=== PATIENT | female | born 1975 | race Caucasian/White ===

== ENCOUNTER 2017-10-10 22:46 | Emergency (ER) | payer MEDICARE, MEDICAID ==
[2017-10-10 23:33] VITALS: O2SAT 98
[2017-10-11] MEDS ORDERED: Sodium Chloride 0.9% 1000 ML 1,000 ML IV STA ×2 (00:05→03:37)
[2017-10-11] MEDS ORDERED: Zofran 4 MG/2 ML VIAL IV ONE ×2 (00:05→03:37)
[2017-10-11] MEDS ORDERED: PROTONIX 40 MG IV IV ONE ×2 (00:05→00:11)
[2017-10-11] MEDS ORDERED: SUBLIMAZE 100 MCG/2 ML IV ONE ×2 (00:05→02:31)
[2017-10-11] MEDS ORDERED: Sodium Chloride 0.9% 1000 ML 1,000 ML ONE (00:11)
[2017-10-11] MEDS ORDERED: Zofran 4 MG/2 ML VIAL ONE (00:11)
[2017-10-11] MEDS ORDERED: SUBLIMAZE 100 MCG/2 ML ONE ×2 (00:11→02:22)
--- NOTE | 2017-10-11 00:30 | ERPHSYRPT ---
- History of Present Illness Time Seen by Provider: 10/10/17 23:08 Historian: patient Exam Limitations: no limitations Patient Subjective Stated Complaint: Pt arrives to ER with c/o rectal bleeding stating has had black stool 4 days ago, vomiting bright red blood yesterday and has bleeding from rectum tonight. Has extensive medical hx. Triage Nursing Assessment: seee above Physician History: Pt states she has a history of Chron's disease, she underwent Colectomy years ago. She was treated in [facility] in [place] with E Coli sepsis, from urine. She was discharged home about one week ago. She started vomiting blood and bleeding from her rectum about 4 days ago, also c/o diffuse abdominal pain. She denies fever, chills, other complaints. She denies vomiting blood today, but had rectal bleeding x4. Timing/Duration: day(s) (4) Activities at Onset: none Quality: cramping, sharpness Abdominal Pain Onset Location: generalized abdomen Pain Radiation: no radiation Severity of Pain-Max: severe Severity of Pain-Current: severe Modifying Factors: Improves With: nothing Associated Symptoms: nausea, vomiting, other (hematemesis, rectal bleeding) Allergies/Adverse Reactions: morphine Allergy (Intermediate, Verified 10/10/17 23:35) intollerance with hallucinations Sulfa (Sulfonamide Antibiotics) [Sulfa(Sulfonamide Antibiotics)] Allergy ( Unknown, Verified 10/10/17 23:35) states is not allergic sumatriptan [From Imitrex] Allergy (Unknown, Verified 10/10/17 23:35) sumatriptan succinate [From Imitrex] Allergy (Unknown, Verified 10/10/17 23:35) meperidine [From Demerol] Adverse Reaction (Verified 10/10/17 23:35) hallucinations Home Medications: Ondansetron ODT 4 MG [Zofran Odt 4 mg] 8 mg PO Q4-6HPRN PRN 02/03/12 [History ] Sucralfate 1000 mg/10 ml [Carafate SUSPENSION 1000 MG/10 ML] QID 02/03/12 [ History] Alprazolam 1 mg [Xanax 1 mg] 2 mg PO BID 10/10/17 [History] Citalopram Hydrobromide [Citalopram HBr] 20 mg PO 10/10/17 [History] Hydromorphone HCl 4 mg [Dilaudid 4 MG Tab] 8 mg PO Q6H PRN PRN 10/10/17 [ History] Methylnaltrexone Br 12 mg [Relistor 12 mg/0.6 ml] 12 mg SQ DAILY 10/10/17 [History] Omeprazole 80 mg PO DAILY 10/10/17 [History] Promethazine HCl 25 mg Supp [Phenergan 25 mg Supp] 25 mg IR Q12H PRN PRN 10/10/17 [History] Promethazine HCl 25 mg [Phenergan 25 mg] 50 mg PO Q12H PRN PRN 10/10/17 [ History] Hx Tetanus, Diphtheria Vaccination/Date Given: Yes (2011) Hx Influenza Vaccination/Date Given: No Hx Pneumococcal Vaccination/Date Given: No - Review of Systems Constitutional: No Symptoms Abdominal/Gastrointestinal: Abdominal Pain, Nausea, Vomiting, Hematemesis, Hematochezia All Other Systems: Reviewed and Negative - Past Medical History Pertinent Past Medical History: Yes Neurological History: Migraines ENT History: No Pertinent History Cardiac History: No Pertinent History Respiratory History: No Pertinent History Endocrine Medical History: Hypoglycemia, Other Musculoskeletal History: Arthritis GI Medical History: Ulcer History: No Pertinent History Psycho-Social History: Anxiety, Depression Female Reproductive Disorders: Cervical Cancer Other Medical History: LUPUS - Past Surgical History Past Surgical History: Yes Neuro Surgical History: No Pertinent History Cardiac: No Pertinent History Respiratory: No Pertinent History Gastrointestinal: No Pertinent History Genitourinary: No Pertinent History Musculoskeletal: No Pertinent History Female Surgical History: Hysterectomy Other Surgical History: EGD. PORT. T&A - Social History Smoking Status: Current every day smoker How long have you smoked: 20 yrs Exposure to second hand smoke: No Drug Use: none Patient Lives Alone: Yes - Female History Hx Now: No - Nursing Vital Signs Nursing Vital Signs: Initial Vital Signs Temperature 98.5 F 10/10/17 23:18 Pulse Rate 109 H 10/10/17 23:18 Respiratory Rate 18 10/10/17 23:18 Blood Pressure 124/83 10/10/17 23:18 O2 Sat by Pulse Oximetry 98 10/10/17 23:18 Pain Scale Pain Intensity 7 - Physical Exam General Appearance: no apparent distress Eye Exam: eyes nml inspection Ears, Nose, Throat Exam: normal ENT inspection Neck Exam: normal inspection, non-tender, supple Respiratory Exam: normal breath sounds, lungs clear, airway intact, No chest tenderness Cardiovascular Exam: regular rate/rhythm, normal heart sounds, normal peripheral pulses, No murmur Gastrointestinal/Abdomen Exam: soft, normal bowel sounds, tenderness ( generalized), No distention, No mass, No guarding, No ecchymosis, No pulsatile mass, No rebound, No hernia, No organomegaly Extremity Exam: normal inspection Neurologic Exam: alert, oriented x 3, normal mood/affect Skin Exam: normal color, warm, dry Lymphatic Exam: No adenopathy SpO2 Interpretation: normal SpO2: 98 Oxygen Delivery: Room Air - Course Nursing assessment & vital signs reviewed: Yes - CT Exams Abdomen/Pelvis CT Interpretation: Tele-radiologist Report, Other (Enteritis with ileus) Ordered Tests: Active Orders 24 hr Category Date Time Status IV Insertion STAT Care 10/11/17 00:05 Active NPO (ED) STAT Care 10/11/17 00:05 Active Orthostatic Vital Signs STAT Care 10/11/17 00:10 Active ABDOMEN AND PELVIS W/0 CONTRAS [CT] Stat Exams 10/11/17 00:05 Ordered CBC W DIFF Stat Lab 10/11/17 00:39 Completed CMP Stat Lab 10/11/17 00:39 Completed LIPASE Stat Lab 10/11/17 00:39 Completed Occult Blood,Stool Other Stat Lab 10/11/17 01:42 Completed PROTIME WITH INR Stat Lab 10/11/17 00:39 Completed UA W/ MICROSCOPIC Stat Lab 10/11/17 01:42 Completed Urine Triage Profile Stat Lab 10/11/17 01:42 Completed Medication Summary Generic Name Dose Route Start Last Admin Trade Name Freq PRN Reason Stop Dose Admin Ceftriaxone Sodium/Dextrose 1 g in 50 mls @ 100 mls/hr 10/11/17 02:27 Rocephin 1 Gm-D5w 50 Ml Bag IV 10/11/17 02:56 STAT STA Discontinued Medications Generic Name Dose Route Start Last Admin Trade Name Freq PRN Reason Stop Dose Admin Fentanyl Citrate 50 mcg 10/11/17 00:05 10/11/17 00:52 Sublimaze 100 Mcg/2 Ml IV 10/11/17 00:06 50 mcg STAT ONE Administration Fentanyl Citrate Confirm 10/11/17 00:11 Sublimaze 100 Mcg/2 Ml Administered 10/11/17 00:12 Dose 100 mcg .ROUTE .STK-MED ONE Fentanyl Citrate Confirm 10/11/17 02:22 Sublimaze 100 Mcg/2 Ml Administered 10/11/17 02:23 Dose 100 mcg .ROUTE .STK-MED ONE Fentanyl Citrate 50 mcg 10/11/17 02:31 Sublimaze 100 Mcg/2 Ml IV 10/11/17 02:32 STAT ONE Sodium Chloride 1,000 mls @ 999 mls/hr 10/11/17 00:05 10/11/17 00:49 Sodium Chloride 0.9% 1000 Ml IV 10/11/17 01:05 999 mls/hr .Q1H1M STA Administration Sodium Chloride Confirm 10/11/17 00:11 Sodium Chloride 0.9% 1000 Ml Administered 10/11/17 00:12 Dose 1,000 mls @ ud .ROUTE .STK-MED ONE Ceftriaxone Sodium/Dextrose Confirm 10/11/17 02:32 Rocephin 1 Gm-D5w 50 Ml Bag Administered 10/11/17 02:33 Dose 1 g in 50 mls @ ud IV .STK-MED ONE Ondansetron HCl 4 mg 10/11/17 00:05 10/11/17 00:52 Zofran 4 Mg/2 Ml Vial IV 10/11/17 00:06 4 mg STAT ONE Administration Ondansetron HCl Confirm 10/11/17 00:11 Zofran 4 Mg/2 Ml Vial Administered 10/11/17 00:12 Dose 4 mg .ROUTE .STK-MED ONE Pantoprazole Sodium 40 mg 10/11/17 00:05 10/11/17 00:49 Protonix 40 Mg Iv IV 10/11/17 00:06 40 mg STAT ONE Administration Pantoprazole Sodium Confirm 10/11/17 00:11 Protonix 40 Mg Iv Administered 10/11/17 00:12 Dose 40 mg IV .STK-MED ONE Lab/Rad Data: Laboratory Result Diagrams 10/11/17 00:39 10/11/17 00:39 Laboratory Results 10/11/17 10/11/17 10/11/17 Range/Units 01:42 01:42 01:42 WBC (4.0-10.5) K/mm3 RBC (4.1-5.4) M/mm3 Hgb (12.0-16.0) gm/dl Hct (35-47) % MCV (78-100) fl MCH (26-32) pg MCHC (32-36) g/dl RDW (11.5-14.0) % Plt Count (150-450) K/mm3 MPV (6-9.5) fl Gran % (36.0-66.0) % Eos # (Auto) (0-0.5) Absolute Lymphs (auto) (1.0-4.6) Absolute Monos (auto) (0.0-1.3) Lymphocytes % (24.0-44.0) % Monocytes % (0.0-12.0) % Eosinophils % (0.00-5.0) % Basophils % (0.0-0.4) % Absolute Granulocytes (1.4-6.9) Basophils # (0-0.4) PT (9.95-12.35) SECONDS INR (0.8-3.0) Sodium (137-145) mmol/L Potassium (3.5-5.1) mmol/L Chloride (98-107) mmol/L Carbon Dioxide (22-30) mmol/L Anion Gap (5-15) MEQ/L BUN (7-17) mg/dL Creatinine (0.52-1.04) mg/dL Estimated GFR ML/MIN Glucose (74-106) mg/dL Calcium (8.4-10.2) mg/dL Total Bilirubin (0.2-1.3) mg/dL AST (14-36) U/L ALT (0-35) U/L Alkaline Phosphatase (38-126) U/L Serum Total Protein (6.3-8.2) g/dL Albumin (3.5-5.0) g/dL Lipase (23-300) U/L Ur Collection Type VOID Urine Color YELLOW (YELLOW) Urine Appearance CLEAR (CLEAR) Urine pH 6.0 (5-6) Ur Specific [place] 1.010 (1.005-1.025) Urine Protein NEGATIVE (Negative) Urine Ketones NEGATIVE (NEGATIVE) Urine Blood NEGATIVE (0-5) Gary/ul Urine Nitrite NEGATIVE (NEGATIVE) Urine Bilirubin NEGATIVE (NEGATIVE) Urine Urobilinogen NORMAL (0-1) mg/dL Ur Leukocyte Esterase TRACE (NEGATIVE) Urine Microscopic RBC 2-5 (0-2) /HPF Urine Microscopic WBC 5-10 (0-5) /HPF Ur Epithelial Cells MODERATE (FEW) /HPF Urine Bacteria FEW (NEGATIVE) /HPF Urine Mucus MODERATE (NEGATIVE) /HPF Urine Culture Reflexed NO (NO) Urine Glucose NEGATIVE (NEGATIVE) mg/dL Stool Occult Blood POSITIVE (Negative) Urine Opiates Level POSITIVE (NEGATIVE) Ur Methadone NEGATIVE (NEGATIVE) Urine Barbiturates NEGATIVE (NEGATIVE) Ur Phencyclidine (PCP) NEGATIVE (NEGATIVE) Urine Amphetamine NEGATIVE (NEGATIVE) U Benzodiazepine Level POSITIVE (NEGATIVE) Urine Cocaine NEGATIVE (NEGATIVE) Urine Marijuana (THC) NEGATIVE (NEGATIVE) Specimen Received 10/11/17 0145 10/11/17 10/11/17 10/11/17 Range/Units 00:39 00:39 00:39 WBC 8.5 (4.0-10.5) K/mm3 RBC 3.26 L (4.1-5.4) M/mm3 Hgb 8.6 L (12.0-16.0) gm/dl Hct 27.1 L (35-47) % MCV 83.1 (78-100) fl MCH 26.3 (26-32) pg MCHC 31.7 L (32-36) g/dl RDW 18.6 H (11.5-14.0) % Plt Count 296 (150-450) K/mm3 MPV 9.6 H (6-9.5) fl Gran % 60.6 (36.0-66.0) % Eos # (Auto) 0.09 (0-0.5) Absolute Lymphs (auto) 2.03 (1.0-4.6) Absolute Monos (auto) 1.18 (0.0-1.3) Lymphocytes % 23.9 L (24.0-44.0) % Monocytes % 13.9 H (0.0-12.0) % Eosinophils % 1.1 (0.00-5.0) % Basophils % 0.5 (0.0-0.4) % Absolute Granulocytes 5.16 (1.4-6.9) Basophils # 0.04 (0-0.4) PT 12.4 H (9.95-12.35) SECONDS INR 1.07 (0.8-3.0) Sodium 143 (137-145) mmol/L Potassium 3.4 L (3.5-5.1) mmol/L Chloride 109 H (98-107) mmol/L Carbon Dioxide 24 (22-30) mmol/L Anion Gap 13.6 (5-15) MEQ/L BUN 5 L (7-17) mg/dL Creatinine 0.57 (0.52-1.04) mg/dL Estimated GFR > 60.0 ML/MIN Glucose 104 (74-106) mg/dL Calcium 8.7 (8.4-10.2) mg/dL Total Bilirubin 0.30 (0.2-1.3) mg/dL AST 17 (14-36) U/L ALT 13 (0-35) U/L Alkaline Phosphatase 95 (38-126) U/L Serum Total Protein 6.3 (6.3-8.2) g/dL Albumin 3.4 L (3.5-5.0) g/dL Lipase 116 (23-300) U/L Ur Collection Type Urine Color (YELLOW) Urine Appearance (CLEAR) Urine pH (5-6) Ur Specific [place] (1.005-1.025) Urine Protein (Negative) Urine Ketones (NEGATIVE) Urine Blood (0-5) Gary/ul Urine Nitrite (NEGATIVE) Urine Bilirubin (NEGATIVE) Urine Urobilinogen (0-1) mg/dL Ur Leukocyte Esterase (NEGATIVE) Urine Microscopic RBC (0-2) /HPF Urine Microscopic WBC (0-5) /HPF Ur Epithelial Cells (FEW) /HPF Urine Bacteria (NEGATIVE) /HPF Urine Mucus (NEGATIVE) /HPF Urine Culture Reflexed (NO) Urine Glucose (NEGATIVE) mg/dL Stool Occult Blood (Negative) Urine Opiates Level (NEGATIVE) Ur Methadone (NEGATIVE) Urine Barbiturates (NEGATIVE) Ur Phencyclidine (PCP) (NEGATIVE) Urine Amphetamine (NEGATIVE) U Benzodiazepine Level (NEGATIVE) Urine Cocaine (NEGATIVE) Urine Marijuana (THC) (NEGATIVE) Specimen Received - Progress Progress: improved Progress Note: 10/11/17 02:36 Improved after Protonix iv, NS, Fentanyl, Rocephine, and Zofran iv. Afebrile, stable hemodynamically, Hgb: 9.6, I explained her results, she wanted to be transferred to [facility] in [place]. I called Dr Corona, Hospitalist in [facility], discussed her results and current condition, she agreed her to be transferred there for further care, patient was informed and agreed to the transfer,m she has been stable hemodynamically for it. 10/11/17 02:38 Counseled pt/family regarding: lab results, diagnosis, rad results - Departure Time of Disposition: 02:38 Departure Disposition: [place] Clinical Impression: Rectal bleeding UTI (urinary tract infection) Qualifiers: Urinary tract infection type: site unspecified Hematuria presence: without hematuria Qualified Code(s): N39.0 - Urinary tract infection, site not specified Condition: Stable Critical Care Time: No Referrals: KHOI TORRES NP [Primary Care Provider] -
[2017-10-11 00:45] LABS: BASOPHIL % 0.5 % (0.0-0.4); Basophil (Absolute #) 0.04 (0-0.4); Eosinophil % 1.1 % (0.00-5.0); Eosinophil (Absolute #) 0.09 (0-0.5); Granulocyte Absolute (ANC) 5.16 (1.4-6.9); Granulocytes % 60.6 % (36.0-66.0); Hematocrit 27.1 % (35-47); Hemoglobin 8.6 gm/dl (12.0-16.0); Lymphocyte (Absolute #) 2.03 (1.0-4.6); Lymphocytes % 23.9 % (24.0-44.0); Mean Cell Volume 83.1 fl (78-100); Mean Corpuscular Hgb Concent. 31.7 g/dl (32-36); Mean Platelet Volume 9.6 fl (6-9.5); Monocyte (Absolute #) 1.18 (0.0-1.3); Monocytes % 13.9 % (0.0-12.0); Platelet Count 296 K/mm3 (150-450); Red Blood Count 3.26 M/mm3 (4.1-5.4); Red Cell Distribution Width 18.6 % (11.5-14.0); White Blood Count 8.5 K/mm3 (4.0-10.5)
[2017-10-11 00:47] LABS: Mean Corpuscular Hemoglobin 26.3 pg (26-32)
[2017-10-11 00:55] LABS: ALBUMIN 3.4 g/dL (3.5-5.0); ALKALINE PHOSPHATASE 95 U/L (38-126); ANION GAP 13.6 MEQ/L (5-15); BLOOD UREA NITROGEN 5 mg/dL (7-17); CHLORIDE 109 mmol/L (98-107); Calcium 8.7 mg/dL (8.4-10.2); Carbon Dioxide 24 mmol/L (22-30); Creatinine 1 0.57 mg/dL (0.52-1.04); Glucose 104 mg/dL (74-106); LIPASE 116 U/L (23-300); Potassium 3.4 mmol/L (3.5-5.1); SGOT/AST 17 U/L (14-36); SGPT/ALT 13 U/L (0-35); SODIUM 143 mmol/L (137-145); Total Protein 6.3 g/dL (6.3-8.2)
[2017-10-11 00:56] LABS: INR 1.07 (0.8-3.0)
[2017-10-11 01:57] LABS: Appearance CLEAR (CLEAR); Bacteria FEW /HPF (NEGATIVE); Bilirubin NEGATIVE (NEGATIVE); Blood NEGATIVE Ery/ul (0-5); Epithelial Cells MODERATE /HPF (FEW); Glucose NEGATIVE (NEGATIVE); Ketones NEGATIVE (NEGATIVE); Leukocyte Esterase TRACE (NEGATIVE); Mucus MODERATE /HPF (NEGATIVE); Nitrite NEGATIVE (NEGATIVE); Protein,Urine Dip NEGATIVE (Negative); Urobilinogen NORMAL mg/dL (0-1)
[2017-10-11 02:03] LABS: Amphetamine,Urine NEGATIVE (NEGATIVE); Barbiturate,Urine NEGATIVE (NEGATIVE); Benzodiazepine,Urine POSITIVE (NEGATIVE); Cocaine,Urine NEGATIVE (NEGATIVE); Methadone,Urine NEGATIVE (NEGATIVE); Opiate,Urine POSITIVE (NEGATIVE); PCP,Urine NEGATIVE (NEGATIVE); THC,Urine NEGATIVE (NEGATIVE)
[2017-10-11] MEDS ORDERED: ROCEPHIN 1 Gm-D5w 50 ml Bag** 1 G/50 ML IVPB IV STA (02:27)
[2017-10-11] MEDS ORDERED: ROCEPHIN 1 Gm-D5w 50 ml Bag** 1 G/50 ML IVPB IV ONE (02:32)
[2017-10-11 02:49] VITALS: BP 125/77; PULSE 77
[2017-10-11] MEDS ORDERED: Pepcid 20 MG VIAL IV ONE (03:37)
[2017-10-11] MEDS ORDERED: TORAdol 30 mg Injection IV ONE (03:37)
--- NOTE | 2017-10-11 09:17 | XRAY ---
Indication: Rectal bleeding and abdominal pain. Multiple contiguous axial images obtained through the abdomen and pelvis without contrast as ordered. Comparison: None Images through the abdomen/pelvis moderately degraded by respiration artifact. Lung bases clear. Heart is not enlarged. Previous gastric bypass surgery. Small bowel bowel loops and ascending colon are mildly fluid distended with synchronous fluid leveling, ileus versus enterocolitis. Intermittent radiopacities seen in the left abdomen bowel loops presumed ingested medication/bismuth. Appendix not seen. No free fluid/air. Previous cholecystectomy and hysterectomy. Remaining liver, pancreas, spleen, adrenal glands, kidneys, ureters, bladder, and aorta appear unremarkable for noncontrast exam. Osseous structures intact. Impression: 1. Limited exam due to respiration artifact. 2. Fluid distended small bowel loops and ascending colon with synchronous fluid leveling. Rule out ileus versus enterocolitis. Comment: Preliminary interpretation was made by [facility]. No discrepancy. CT DI 9.31
== END 2017-10-11 04:03 | disposition short-term general hospital (02) ==
LOC: ED 22:46
DX: K62.5 Hemorrhage of anus and rectum (principal); N39.0 Urinary tract infection, site not specified; K92.0 Hematemesis; R10.84 Generalized abdominal pain; Z79.899 Other long term (current) drug therapy
CPT/HCPCS: 36000; 36415; 74176; 80053; 80307; 81000; 82272; 83690; 85025; 85610; 96360; 96365; 96374; 96375; 96376; 99284; J0696; J2405; J3010

== ENCOUNTER 2021-11-16 08:58 | Day surgery (SDC) | payer MEDICARE ==
[2012-02-03 02:19] VITALS: BP 143/69
[2021-11-16] MEDS ORDERED: Depo-Medrol 40 MG/ML IM ONE (08:59)
[2021-11-16] MEDS ORDERED: Marcaine Mpf 0.5% Vial 30 Ml IJ ONE (08:59)
[2021-11-16] MEDS ORDERED: Lactated Ringers 1,000 ML IV ONE (12:04)
[2021-11-16] MEDS ORDERED: DIPRIVAN 200 MG/20 ML IV ONE ×2 (12:11→12:19)
[2021-11-16] MEDS ORDERED: Hydromorphone 1 mg/ml Injection ONE (12:30)
--- NOTE | 2021-11-16 13:18 | XRAY ---
1 minute and 20 seconds of fluoroscopy was used in surgery for bilateral hips intra-articular and greater trochanteric bursa injections.
--- NOTE | 2021-11-16 13:18 | XRAY ---
Indication: Bilateral hip and bilateral greater trochanter bursa injections. Intraoperative fluoroscopy provided for 1 minute 20 seconds. 5 digital spot images submitted for interpretation demonstrates needle tips lateral to left/right femur necks and lateral to left/right greater trochanters. Small amount of contrast injected for all needle tip placement. Correlate with intraoperative findings/report.
== END 2021-11-16 12:46 | disposition home or self-care (01) ==
LOC: SDC-PAIN 08:58
PROVIDERS: ATTEND Psychiatry & Neurology Pain Medicine
DX: M16.0 Bilateral primary osteoarthritis of hip (principal); M70.62 Trochanteric bursitis, left hip; M70.61 Trochanteric bursitis, right hip; Z79.899 Other long term (current) drug therapy
CPT/HCPCS: 20610; 73522; 77002; J1030; J1170; J1642; J2704; Q9966

== ENCOUNTER 2021-12-21 12:35 | Day surgery (SDC) | payer MEDICARE ==
[2012-02-03 02:19] VITALS: BP 143/69
[2021-12-21] MEDS ORDERED: BUPIVACAINE 0.5% VIAL IJ ONE (12:36)
[2021-12-21] MEDS ORDERED: Depo-Medrol 40 MG/ML IM ONE (12:36)
[2021-12-21] MEDS ORDERED: Decadron 4 MG INJ IV ONE (12:36)
[2021-12-21] MEDS ORDERED: XYLOCAINE-MPF 1% 5ML SDV IJ ONE (12:36)
[2021-12-21] MEDS ORDERED: DIPRIVAN 200 MG/20 ML IV ONE ×2 (14:08→14:16)
[2021-12-21] MEDS ORDERED: Lactated Ringers 1,000 ML IV ONE (14:27)
[2021-12-21] MEDS ORDERED: Hydromorphone 1 mg/ml Injection ONE (14:34)
--- NOTE | 2021-12-21 15:37 | XRAY ---
1 minute and 26 seconds fluoroscopy time in surgery for bilateral piriformis muscles and bilateral greater trochanter injections.
--- NOTE | 2021-12-21 16:42 | XRAY ---
Indication: Bilateral piriformis and bilateral greater trochanter bursa injections MARIBEL. Intraoperative fluoroscopy provided for 1 minute 26 seconds. 5 digital spot image obtained prone submitted for interpretation demonstrates posterior needle tips projecting over the expected left and right piriformis muscles. Additional needle tips lateral to the left and right greater trochanters. Small amount of contrast injected for all needle tip placement. Correlate with intraoperative findings/report.
== END 2021-12-21 14:45 | disposition home or self-care (01) ==
LOC: SDC-PAIN 12:35
PROVIDERS: ATTEND Psychiatry & Neurology Pain Medicine
DX: M70.62 Trochanteric bursitis, left hip (principal); M70.61 Trochanteric bursitis, right hip; M79.18 Myalgia, other site
CPT/HCPCS: 20552; 20610; 73522; 77002; J1030; J1100; J1170; J2704; Q9966

== ENCOUNTER 2022-04-06 09:39 | Day surgery (SDC) | payer MEDICARE ==
[2012-02-03 02:19] VITALS: BP 143/69
[2022-04-06] MEDS ORDERED: BUPIVACAINE 0.5% VIAL IJ ONE (09:40)
[2022-04-06] MEDS ORDERED: LIDOCAINE HCL 1% 50 MG/5 ML VL PF IJ ONE (09:40)
[2022-04-06] MEDS ORDERED: Depo-Medrol 40 MG/ML IM ONE (09:40)
[2022-04-06] MEDS ORDERED: Versed 2 MG/2 ML Injection ONE (10:50)
[2022-04-06] MEDS ORDERED: DIPRIVAN 200 MG/20 ML IV ONE ×2 (11:48→11:57)
[2022-04-06] MEDS ORDERED: Hydromorphone 1 mg/ml Injection ONE (12:06)
[2022-04-06] MEDS ORDERED: Lactated Ringers 1,000 ML IV ONE (13:30)
--- NOTE | 2022-04-06 13:34 | XRAY ---
Indication: Bilateral greater trochanter bursa injection. Intraoperative fluoroscopy provided for 25 seconds. 2 digital spot image submitted for interpretation demonstrates needle tip projecting lateral to the left and right greater trochanters. Small amount of contrast injected for both needle tip placement. Correlate with intraoperative findings/report.
--- NOTE | 2022-04-06 13:41 | XRAY ---
25 seconds fluoroscopy time in surgery for bilateral injections of the greater trochanters of both hips.
== END 2022-04-06 12:25 | disposition home or self-care (01) ==
LOC: SDC-PAIN 09:39
PROVIDERS: ATTEND Psychiatry & Neurology Pain Medicine
DX: M70.62 Trochanteric bursitis, left hip (principal); M70.61 Trochanteric bursitis, right hip; M79.18 Myalgia, other site; Z79.899 Other long term (current) drug therapy
CPT/HCPCS: 20553; 20610; 73521; 77002; J1030; J1170; J1642; J2001; J2250; J2704; Q9966

== ENCOUNTER 2022-07-19 10:06 | Day surgery (SDC) | payer MEDICARE ==
[2012-02-03 02:19] VITALS: BP 143/69
[2022-07-19] MEDS ORDERED: Depo-Medrol 40 MG/ML IM ONE (10:07)
[2022-07-19] MEDS ORDERED: BUPIVACAINE 0.5% VIAL IJ ONE (10:07)
[2022-07-19] MEDS ORDERED: LIDOCAINE HCL 1% 50 MG/5 ML VL PF IJ ONE (10:07)
[2022-07-19] MEDS ORDERED: Versed 2 MG/2 ML Injection ONE ×2 (10:33→12:01)
[2022-07-19] MEDS ORDERED: DIPRIVAN 200 MG/20 ML IV ONE (11:58)
[2022-07-19] MEDS ORDERED: Hydromorphone 1 mg/ml Injection ONE ×2 (12:18→12:20)
--- NOTE | 2022-07-19 12:48 | XRAY ---
Indication: Bilateral greater trochanter bursa injection. Intraoperative fluoroscopy provided for 33 seconds. 2 digital spot image submitted for interpretation demonstrates needle tip projecting lateral to the left and right greater trochanters. Small amount of contrast injected for both needle tip placement. Correlate with intraoperative findings/report.
[2022-07-19] MEDS ORDERED: Lactated Ringers 1,000 ML IV ONE (13:18)
--- NOTE | 2022-07-19 14:41 | XRAY ---
33 seconds of fluoroscopy was used in surgery for a bilateral greater trochanteric bursa injection.
== END 2022-07-19 12:40 | disposition home or self-care (01) ==
LOC: SDC-PAIN 10:06
PROVIDERS: ATTEND Psychiatry & Neurology Pain Medicine
DX: M70.62 Trochanteric bursitis, left hip (principal); M70.61 Trochanteric bursitis, right hip; M79.18 Myalgia, other site; Z79.899 Other long term (current) drug therapy
CPT/HCPCS: 20553; 20610; 73521; 77002; J1030; J1170; J1642; J2001; J2250; J2704; Q9966

== ENCOUNTER 2022-12-06 14:26 | Day surgery (SDC) | payer MEDICARE ==
[2012-02-03 02:19] VITALS: BP 143/69
[2022-12-06] MEDS ORDERED: Decadron 4 MG INJ IV ONE (14:27)
[2022-12-06] MEDS ORDERED: XYLOCAINE 1% HCL 20 ML MDV IJ ONE (14:27)
[2022-12-06] MEDS ORDERED: BUPIVACAINE 0.5% VIAL IJ ONE (14:27)
[2022-12-06] MEDS ORDERED: Depo-Medrol 40 MG/ML IM ONE (14:27)
[2022-12-06] MEDS ORDERED: Versed 2 MG/2 ML Injection ONE (16:03)
[2022-12-06] MEDS ORDERED: DIPRIVAN 200 MG/20 ML IV ONE ×2 (16:46→16:53)
[2022-12-06] MEDS ORDERED: Hydromorphone 1 mg/ml Injection ONE (17:00)
[2022-12-06] MEDS ORDERED: Lactated Ringers 1,000 ML IV ONE (18:04)
--- NOTE | 2022-12-06 20:55 | XRAY ---
Indication: Bilateral piriformis and bilateral greater trochanter bursa injection. Intraoperative fluoroscopy provided for 49 seconds. 4 digital spot images submitted for interpretation demonstrates posterior needle tip projecting over left and right piriformis. Additional needle tip lateral to the left and right greater trochanters. Small amount of contrast injected for all needle tip placement. Correlate with intraoperative findings/report.
--- NOTE | 2022-12-07 09:54 | XRAY ---
49 seconds of fluoroscopy was used in surgery for a bilateral greater trochanteric bursa and bilateral piriformis injection.
== END 2022-12-06 17:25 | disposition home or self-care (01) ==
LOC: SDC-PAIN 14:26
PROVIDERS: ATTEND Psychiatry & Neurology Pain Medicine
DX: M70.62 Trochanteric bursitis, left hip (principal); M70.61 Trochanteric bursitis, right hip; M79.18 Myalgia, other site; Z79.899 Other long term (current) drug therapy
CPT/HCPCS: 20552; 20610; 73521; 77002; J1030; J1100; J1170; J1642; J2250; J2704; Q9966